=== PATIENT | female | born 1965 | race Asian ===

== ENCOUNTER 2019-01-26 17:40 | Emergency (ER) | payer BC, MEDICAID ==
[~2019-01-26] VITALS: Ht 162.6 cm; Wt 63.9 kg
[~2019-01-26 17:40] MED LIST: PREN-88 PO
[2019-01-27] MEDS ORDERED: MAGNESIUM/ALUMINUM HYDROXIDE/SIMETHICONE 30ML UDC PO STA (00:58)
[2019-01-27] MEDS ORDERED: VISCOUS LIDOCAINE 2% 15 ML UDC PO STA (00:58)
[2019-01-27] MEDS ORDERED: SODIUM CHLORIDE 0.9% 1,000 ML IV ONE (00:58)
[2019-01-27] MEDS ORDERED: ONDANSETRON HCL 4MG/2ML INJ IV STA (00:58)
[2019-01-27 01:31] LABS: BASOPHILS % 0.2 % (0.0-2.0); EOSINOPHILS % 0.4 % (0.0-5.0); HEMATOCRIT. 42.4 % (36.0-48.0); HEMOGLOBIN. 14.5 g/dL (12.0-16.0); LYMPHOCYTES % 10.7 % (20.0-50.0); MEAN CORPUSCULAR VOLUME 90.9 fL (81.0-99.0); MONOCYTES % 3.1 % (2.0-8.0); NEUTROPHILS % 85.6 % (40.0-76.0); PLATELET 143 x1000/uL (130-400); RED BLOOD CELL COUNT 4.66 mill/uL (4.2-5.4); RED CELL DISTRIBUTION WIDTH 13.3 % (11.6-14.6)
[2019-01-27 01:38] LABS: CHLORIDE 107 mEq/L (98-107)
[2019-01-27 01:40] LABS: PROTHROMBIN TIME 10.7 sec (9.6-11.0)
[2019-01-27 04:40] LABS: CLARITY URINE CLEAR (CLEAR); COLOR URINE YELLOW (YELLOW); KETONES URINE 1+ (NEGATIVE); LEUKOCYTE ESTERASE URINE 1+ (NEGATIVE); NITRITE URINE NEGATIVE (NEGATIVE); OCCULT BLOOD URINE NEGATIVE (NEGATIVE); PH URINE 5.5 (4.5-8.0); PROTEIN URINE NEGATIVE (NEGATIVE); SPECIFIC GRAVITY URINE 1.025 (1.005-1.030)
[2019-01-27 04:57] VITALS: BP 139/71
== END 2019-01-27 05:00 | disposition home or self-care (01) ==
LOC: ER 18:53
DX: R10.13 Epigastric pain (principal); E78.00 Pure hypercholesterolemia, unspecified; Z98.890 Other specified postprocedural states; Z88.0 Allergy status to penicillin
CPT/HCPCS: 36415; 74021; 80053; 81003; 81025; 83690; 84484; 85025; 85610; 93005; 96374; 99284; J2405; J7030; Z7610

== ENCOUNTER 2023-08-23 07:33 | Emergency (ER) | payer BC, MEDICAID, OTHER ==
[~2023-08-23] VITALS: Ht 157.5 cm; Wt 66.0 kg
[2023-08-23 08:15] VITALS: TEMP 98.1; O2SAT 97
[2023-08-23] MEDS ORDERED: KETOROLAC 60MG/2ML VIAL IM ONE (09:00)
[2023-08-23 09:28] VITALS: BP_DIAS 82
[2023-08-23] MEDS ORDERED: IBUP-2029 MT (11:22)
[2023-08-23 11:41] VITALS: BP_SYST 116; PULSE 78; RESP 20
== END 2023-08-23 11:43 | disposition home or self-care (01) ==
LOC: ER 07:33
DX: R51.9 Headache, unspecified (principal); Z68.26 Body mass index [BMI] 26.0-26.9, adult; Z88.0 Allergy status to penicillin
CPT/HCPCS: 96372; 99283; J1885; Z7610